=== PATIENT | female | born 1980 | race African-American/Black ===

== ENCOUNTER 2017-04-12 07:59 | Outpatient (CLI) | payer OTHER ==
[2017-04-12] MEDS ORDERED: Gadobenate Dimeglumine 529 MG/1 ML (20ML VIAL) ONE (10:04)
--- NOTE | 2017-04-12 11:17 | MRI ---
MRI OF THE LEFT ANKLE WITH AND WITHOUT IV CONTRAST: Date: 04/12/17 PROVIDED CLINICAL HISTORY: Pain and swelling at surgical site. FINDINGS: There is prominent noncircumscribed signal alteration involving the subcutaneous adipose layer at the lateral aspect of the distal fibula demonstrating associated heterogeneous contrast enhancement comp atible with changes of cellulitis in the appropriate clinical context. There is no evidence for a nicole inable abscess. There is common peroneal tenosynovial fluid with associated enhancement. There is sig nal alteration on T1-weighted images, fluid sensitive sequences, and postcontrast images at the later al malleolus compatible with changes of osteomyelitis in the appropriate clinical context. Regional marrow signal appears otherwise normal. Regional muscular signal appears normal. There is no regional joint effusion evident. There is preservation of normal fat signal intensity wit hin the sinus tarsi. The plantar aponeurosis appears normal. The anterior extensor, medial flexor, an d Achilles tendons demonstrate an unremarkable MR appearance. The medial and lateral ankle ligaments appear intact. IMPRESSION: Findings compatible with cellulitis at the lateral aspect of the ankle with associated marrow signal changes within the distal fibula laterally suspicious for osteomyelitis. Common peroneal tenosynoviti s is seen with associated enhancement that may reflect infectious tenosynovitis. There is no evidence for drainable abscess. POS: OFF
== END 2017-04-12 08:00 | disposition home or self-care (01) ==
LOC: MRI 07:59
PROVIDERS: ATTEND Family Medicine
DX: M79.89 Other specified soft tissue disorders (principal); M25.572 Pain in left ankle and joints of left foot; M65.872 Other synovitis and tenosynovitis, left ankle and foot
CPT/HCPCS: A9579

== ENCOUNTER 2017-08-09 11:23 | Outpatient (CLI) | payer OTHER ==
[2017-08-09] MEDS ORDERED: Gadobenate Dimeglumine 529 MG/1 ML (20ML VIAL) ONE (15:06)
--- NOTE | 2017-08-09 15:42 | MRI ---
MRI OF THE LEFT ANKLE WITH AND WITHOUT CONTRAST: INDICATION: Followup from complications from complications from ankle surgery. COMPARISON: Prior exam dated 04/12/17. FINDINGS: 15 ml of Multihance was utilized. The previously seen diffuse abnormal signal involving the lateral malleolar tip has significantly imp roved. There is some mild residual T2 hyperintensity seen along the distal aspect of the lateral mal leolus with some cortical irregularity suspicious for changes of some mild residual osteomyelitis. T his is best seen on image 19 of series 12 and image 19 of series 6. There is persistent edema and mi ld inflammation overlying the lateral malleolus likely related to mild cellulitis. There is persiste nt partial-thickness tear of the peroneus longus tendon. A small amount of tenosynovitis remains. IMPRESSION: 1. Overall improvement in osteomyelitis involving the distal fibular tip. There is some residual ab normal signal and enhancement seen involving the very inferior aspect of the fibular tip consistent w ith mild persistent osteomyelitis. There is mild cellulitis overlying the lateral aspect of the left ankle. 2. Mild tenosynovitis of the peroneus longus tendon. 3. Stable partial thickness tear involving the peroneus longus tendon. POS: RUCHI
== END 2017-08-09 11:24 | disposition home or self-care (01) ==
LOC: MRI 11:23
PROVIDERS: ATTEND Family Medicine
DX: T84.098A Other mechanical complication of other internal joint prosthesis, initial encounter (principal); M86.8X7 Other osteomyelitis, ankle and foot
CPT/HCPCS: A9579